=== PATIENT | female | born 1960 | race Caucasian/White ===

== ENCOUNTER → 2017-05-10 15:26 | Outpatient (CLI) | payer BC, MEDICARE, SELFPAY ==
--- NOTE | 2017-05-10 15:30 | RAD_ITS ---
STUDY: X-RAY - LUMBOSACRAL SPINE REASON FOR EXAM: Female, 56 years old. Lower back pain TECHNIQUE: 8 view(s) of the lumbosacral spine were obtained. COMPARISON: 11/20/2013 FINDINGS: There is an exaggerated lumbar lordosis. There is a levoscoliosis of the lumbar spine. There is normal alignment of the vertebrae. Postsurgical fusion noted at L2-3. Artificial intervertebral disc spacer. There is multi-level degenerative disc disease with multi-level disc space narrowing. There is degenerative arthrosis of the sacroiliac joint with articular joint space narrowing and spur formation. Normal visualized soft tissue structures. RAD/L/S Spine Comp/w Bending Views IMPRESSION: Levoscoliosis with postsurgical changes. No acute findings. Remaining levels demonstrate degenerative change. As compared to the exam from 2013, increased levoscoliosis. Electronically Signed: Victorino Tobias DO at 16:00 EST Tel , Service support ,
== END ==
PROVIDERS: Visit Provider Orthopaedic Surgery
DX: M54.5 Low back pain (principal)
CPT/HCPCS: 72082; 72114

== ENCOUNTER → 2017-05-10 16:11 | Outpatient (CLI) | payer BC, MEDICARE, SELFPAY ==
--- NOTE | 2017-05-10 16:18 | RAD_ITS ---
STUDY: XR SPINE ENTIRE THORACIC T LUMBAR (W SKULL, CERVICAL AND SACRAL SPINE IF PERFORMED) REASON FOR EXAM: Female, 56 years old. Chronic low back pain. TECHNIQUE: Radiological exam, spine, entire thoracic and lumbar, including skull, cervical and sacral spine if performed (eg, scoliosis evaluation); 2 or 3 views. COMPARISON: Comparison is made with prior lumbar radiograph dated May 10, 2017. FINDINGS: There is a 28 degree levoscoliosis scoliosis of the lumbar spine with the apex of the convexity at the L3 level. The patient is status post interpedicular screw fixation at the L2-L3 level. The soft tissue structures are unremarkable. RAD/Scoliosis 2 or 3 views IMPRESSION: 28 degree levoscoliosis of the lumbar spine. Prior interpedicular screw fixation at the L2-L3 level. Electronically Signed: Julián Fry MD at 12:40 EST Tel [phone], Service support ,
== END ==
PROVIDERS: Visit Provider Orthopaedic Surgery
DX: M54.5 Low back pain (principal)
CPT/HCPCS: 72082

== ENCOUNTER → 2017-05-16 16:47 | Outpatient (CLI) | payer BC, MEDICARE, SELFPAY ==
--- NOTE | 2017-05-16 16:50 | MRI_ITS ---
STUDY: MRI LUMBAR SPINE WITH AND WITHOUT CONTRAST REASON FOR EXAM: Female, 56 years old. Low back pain TECHNIQUE: Standardized fat and water weighted pulse sequences were obtained in the sagittal and axial planes. 8 ml of Gadavist contrast material was administered for the contrast portion of the examination. COMPARISON: None FINDINGS: T12-L1: Normal endplates. Normal disc height, hydration and morphology. Normal bilateral facet joints. Normal central canal and bilateral lateral recesses. Normal bilateral intervertebral neural foramina. Normal lumbar lordosis. Mild levoconvex scoliosis. Normal conus medullaris that terminates at the L1 level. Bilateral posterior pedicle fusions have been performed at the L2 and L3 levels. The L2-3 disc space has been fused. L1-2: Normal endplates. Normal disc height, hydration and morphology. Normal bilateral facet joints. Normal central canal and bilateral lateral recesses. Normal bilateral intervertebral neural foramina. L2-3: Residual osteophyte with moderate right foraminal stenosis. L3-4: Disc space narrowing and desiccation. Bulging annulus with right foraminal disc protrusion. Bilateral facet hypertrophy. Moderate central canal stenosis and severe right lateral recess stenosis. Severe right foraminal stenosis with mass effect on the exiting right L3 nerve root. L4-5: Disc desiccation. Bulging annulus and bilateral facet and ligamentum flavum hypertrophy with severe central canal stenosis and mass effect on transiting nerve roots. Moderate bilateral foraminal stenoses. L5-S1: Disc space narrowing and desiccation with discogenic endplate changes and anterior osteophytes. Bulging annulus and left lateral osteophyte with bilateral facet hypertrophy. Severe left foraminal stenosis with mass effect on the exiting left L5 nerve root. Normal visualized sacral ala. Normal visualized paraspinous soft tissue structures. No abnormal intrathecal postcontrast enhancement. MRI/Spine Lumbar W/WO Contrast IMPRESSION: Multilevel degenerative disease as described. Severe right foraminal stenosis at L3-4 and mass effect on the right L3 nerve root. Severe left foraminal stenosis at L5-S1 with mass effect on the left L5 nerve root. Severe right lateral recess stenosis at L3-4. Severe central canal stenosis at L4-5 with mass effect on transiting nerve roots. Electronically Signed: Noel Hairston MD at 7:17 EST Tel , Service support ,
== END ==
PROVIDERS: Visit Provider Orthopaedic Surgery
DX: M54.16 Radiculopathy, lumbar region (principal)
CPT/HCPCS: 72158; A9585

== ENCOUNTER → 2018-09-13 | Outpatient (CLI) | payer OTHER, MEDICARE, SELFPAY ==
--- NOTE | 2018-09-13 18:02 | RAD_ITS ---
STUDY: X-RAY - LUMBAR SPINE REASON FOR EXAM: Female, 58 years old. Low back pain TECHNIQUE: 3 view(s) of the lumbar spine were obtained. COMPARISON: Prior study of 05/10/2017 FINDINGS: Normal lumbar lordosis. There is a mild thoracolumbar levoscoliosis. There is a normal alignment of the vertebrae. There are posterior spinal fusion changes from L2 to S1 with rods and interpeduncular screws. A disc spacer is present at the L2-3 level. There is multilevel disc space narrowing. There are status post laminectomy changes of L2-L5. There is no demonstrated fracture. There are calcified plaques of the abdominal aorta. RAD/Lumbar Spine 2 or 3 Views IMPRESSION: Status post posterior spinal fusion changes with rods and interpeduncular screws from L2 to S1. A disc spacer is present at the L2-3 level. There is multilevel disc space narrowing. There are status post laminectomy changes of L2-L5. There is no evidence of acute fracture or spondylolisthesis. Electronically Signed: Octavio Platt MD at 21:20 EDT , Service support ,
== END | disposition home or self-care (01) ==
LOC: RAD 17:57
PROVIDERS: Visit Provider Anesthesiology Pain Medicine
DX: M54.9 Dorsalgia, unspecified (principal)
CPT/HCPCS: 72100

== ENCOUNTER → 2019-11-12 | Outpatient (CLI) | payer MEDICARE, BC, SELFPAY ==
[2017-05-10 15:34] VITALS: BMI 30.9
[2019-11-12 20:44] LABS: Amphetamine Urine VISTA NEGATIVE (<1000 ng/mL); Barbiturate Urine VISTA NEGATIVE (< 200 ng/mL); Benzodiazepine Urine VISTA NEGATIVE (< 200 ng/mL); Cocaine Urine VISTA NEGATIVE (< 300 ng/mL); Ecstacy Urine VISTA POSITIVE (< 500 ng/mL); Methadone Urine VISTA NEGATIVE (< 300 ng/mL); PCP Urine VISTA NEGATIVE (< 25 ng/mL); THC Urine VISTA NEGATIVE (< 50 ng/mL); Vista UDS pH Range 6
== END | disposition home or self-care (01) ==
LOC: LAB 17:16
PROVIDERS: Referring Provider Anesthesiology Pain Medicine; Visit Provider Anesthesiology Pain Medicine
DX: F11.20 Opioid dependence, uncomplicated (principal)
CPT/HCPCS: 80307

== ENCOUNTER 2020-07-11 06:50 | Day surgery (SDC) | payer MEDICARE, BC, SELFPAY ==
[2020-07-11] VITALS (7 sets, daily range): BP systolic 107–159; BP diastolic 52–92; PULSE 69–72; RESP 16–18; TEMP 36.3; O2SAT 92–100; BMI 38.9
[2020-07-11] MEDS: Lactated Ringers 1,000 ML 100 ML IV (07:33)
--- NOTE | 2020-07-11 08:30 | RAD_ITS ---
PROCEDURE: Insert of spinal cord stimulator. DATE OF EXAMINATION: 07/11/2020 INDICATION: Female, 59 years old. Chronic low back pain. FLUOROSCOPY TIME (if supplied): (314 seconds) minutes/seconds. 3 fluoroscopic images were obtained. RAD/Lumbar Spine 2 or 3 Views IMPRESSION: Intraoperative imaging provided for spinal cord stimulator placement. The tip of the electrodes is at the T8-T9 disc space level. Electronically Signed: Julián Fry MD at 11:02 EDT , Service support ,
[2020-07-11] MEDS: Lidocaine 0.5% (50 ml) 50 ML Vial (09:11)
[2020-07-11] MEDS: Bupiv/Epi 0.25% 30 ML Vial (09:11)
== END 2020-07-11 12:15 ==
LOC: SDC 06:50 → AC 06:51
PROVIDERS: PCP Internal Medicine; Referring Provider Anesthesiology Pain Medicine; Visit Provider Anesthesiology Pain Medicine
PROC: (CPT 63685; principal; 2020-07-11 08:15)
DX: M48.00 Spinal stenosis, site unspecified (principal); M54.6 Pain in thoracic spine; M54.5 Low back pain; M79.604 Pain in right leg; G89.29 Other chronic pain; F41.9 Anxiety disorder, unspecified; F31.9 Bipolar disorder, unspecified; I10 Essential (primary) hypertension; E03.9 Hypothyroidism, unspecified; M06.9 Rheumatoid arthritis, unspecified; F20.9 Schizophrenia, unspecified; F17.200 Nicotine dependence, unspecified, uncomplicated; Z79.899 Other long term (current) drug therapy; Z20.822 Contact with and (suspected) exposure to COVID-19
CPT/HCPCS: 01936; 63650 ×2; 63685; 95972; 72100; 76000; 87426; C1776; C9803; J7120; J2405

== ENCOUNTER → 2020-11-27 12:52 | Outpatient (CLI) | payer MEDICARE, SELFPAY ==
[2020-11-27 14:53] LABS: Amphetamine Urine VISTA NEGATIVE (<1000 ng/mL); Barbiturate Urine VISTA NEGATIVE (< 200 ng/mL); Benzodiazepine Urine VISTA NEGATIVE (< 200 ng/mL); Cocaine Urine VISTA NEGATIVE (< 300 ng/mL); Ecstacy Urine VISTA POSITIVE (< 500 ng/mL); Methadone Urine VISTA NEGATIVE (< 300 ng/mL); PCP Urine VISTA NEGATIVE (< 25 ng/mL); THC Urine VISTA NEGATIVE (< 50 ng/mL); Vista UDS pH Range 7
== END ==
PROVIDERS: PCP Internal Medicine; Referring Provider Anesthesiology Pain Medicine; Visit Provider Anesthesiology Pain Medicine
DX: F11.20 Opioid dependence, uncomplicated (principal)
CPT/HCPCS: 80307

== ENCOUNTER → 2021-12-23 | Outpatient (CLI) | payer MEDICARE, SELFPAY ==
[2021-12-23 13:43] LABS: Amphetamine Urine VISTA NEGATIVE (<1000 ng/mL); Barbiturate Urine VISTA NEGATIVE (< 200 ng/mL); Benzodiazepine Urine VISTA NEGATIVE (< 200 ng/mL); Cocaine Urine VISTA NEGATIVE (< 300 ng/mL); Ecstacy Urine VISTA POSITIVE (< 500 ng/mL); Methadone Urine VISTA NEGATIVE (< 300 ng/mL); PCP Urine VISTA NEGATIVE (< 25 ng/mL); THC Urine VISTA NEGATIVE (< 50 ng/mL); Vista UDS pH Range 6
== END | disposition home or self-care (01) ==
LOC: LAB 11:26
PROVIDERS: PCP Family Medicine; Referring Provider Anesthesiology Pain Medicine; Visit Provider Anesthesiology Pain Medicine
DX: F11.20 Opioid dependence, uncomplicated (principal)
CPT/HCPCS: 80307

== ENCOUNTER → 2022-11-17 | Outpatient (CLI) | payer MEDICARE, MEDICAID, SELFPAY ==
[2022-11-17 13:23] LABS: Amphetamine Urine VISTA NEGATIVE (<1000 ng/mL); Barbiturate Urine VISTA NEGATIVE (< 200 ng/mL); Benzodiazepine Urine VISTA NEGATIVE (< 200 ng/mL); Cocaine Urine VISTA NEGATIVE (< 300 ng/mL); Ecstacy Urine VISTA POSITIVE (< 500 ng/mL); Methadone Urine VISTA NEGATIVE (< 300 ng/mL); PCP Urine VISTA NEGATIVE (< 25 ng/mL); THC Urine VISTA NEGATIVE (< 50 ng/mL); Vista UDS pH Range 7
== END | disposition home or self-care (01) ==
PROVIDERS: PCP Family Medicine; Referring Provider Anesthesiology Pain Medicine; Visit Provider Anesthesiology Pain Medicine
DX: F11.20 Opioid dependence, uncomplicated (principal)
CPT/HCPCS: 80307

== ENCOUNTER → 2024-01-10 | Outpatient (CLI) | payer MEDICARE, MEDICAID, SELFPAY ==
--- NOTE | 2024-01-10 16:00 | RAD_ITS ---
INDICATION: Postlaminectomy syndrome, not elsewhere classified EXAMINATION/TECHNIQUE: X-RAY - XR Spine Lumbar 2 or 3 Views COMPARISON: Prior study dated: 10/10/2018. FINDINGS: VERTEBRAE: Preserved vertebral body height. Fusion of L3-S1 is again seen with bilateral pedicle screws. Extension of the fusion of the lower thoracic and upper lumbar spine. No spondylolisthesis. Preservation of the normal lumbar lordosis. Mild levoscoliosis. DISCS: Disc implant at the level of L2-L3 Previous exam. INCLUDED ABDOMEN: Included bowel gas pattern is non-obstructive. RAD/Lumbar Spine 2 or 3 Views IMPRESSION: Fusion of the lower thoracic and lumbar spine with laminectomy. Electronically Signed: Tutu Strange MD at 14:41 EDT ,
== END | disposition home or self-care (01) ==
LOC: RAD 15:53
PROVIDERS: PCP Family Medicine; Referring Provider Anesthesiology Pain Medicine; Visit Provider Anesthesiology Pain Medicine
DX: M96.1 Postlaminectomy syndrome, not elsewhere classified (principal)
CPT/HCPCS: 72100

== ENCOUNTER → 2024-02-14 | Outpatient (CLI) | payer MEDICARE, SELFPAY ==
--- NOTE | 2024-02-14 16:30 | RAD_ITS ---
INDICATION: Radiculopathy, cervical region EXAMINATION/TECHNIQUE: X-RAY - XR Spine Cervical 2 or 3 Views COMPARISON: No relevant prior comparison study available FINDINGS: VERTEBRAE: Cervical fusion hardware anteriorly from C3 to C6. Preserved vertebral body height. Chronic appearing fragmentation of the anterior aspect of the C2 vertebral body with corticated margins. No spondylolisthesis. Preservation of the normal cervical lordosis. No significant facet arthropathy. DISCS: Disc spaces are otherwise maintained. NECK SOFT TISSUES: No prevertebral soft tissue widening. LUNG APICES: Clear. RAD/Cerv Spine 2 or 3 Views IMPRESSION: Intact fusion hardware C3-C6. Alignment maintained. Remaining levels are maintained.. Electronically Signed: Isreal Rajput MD at 20:03 EST ,
== END | disposition home or self-care (01) ==
LOC: RAD 16:27
PROVIDERS: PCP Family Medicine; Referring Provider Anesthesiology Pain Medicine; Visit Provider Anesthesiology Pain Medicine
DX: M54.12 Radiculopathy, cervical region (principal)
CPT/HCPCS: 72040

== ENCOUNTER → 2024-05-09 | Outpatient (CLI) | payer MEDICARE, SELFPAY ==
--- NOTE | 2024-05-09 07:43 | MRI_ITS ---
PROCEDURE: SPINE CERVICAL (ROUTINE) REASON FOR EXAM: Radiculopathy. TECHNIQUE: Cervical spine MRI without intravenous gadolinium-based contrast. CONTRAST: None. COMPARISON: None. FINDINGS: Vertebral body heights are maintained. Chronic fragmentation of the anteroinferior portion of the C2 vertebral body. No abnormal marrow signal. C3 through C6 anterior cervical fusion and discectomy. C2-3: Unremarkable C3-4: Fused. Facet arthropathy resulting in mild right neural foraminal stenosis. C4-5: Fused. C5-6: Fused. C6-7: Facet and uncovertebral hypertrophy resulting in mild right neural foraminal stenosis. C7-T1: Unremarkable MRI/Spine Cervical (Routine) IMPRESSION: Mild degenerative changes. C3 through C6 anterior cervical discectomy and fusion. Reading Location: [place] [id number]
== END | disposition home or self-care (01) ==
PROVIDERS: PCP Family Medicine; Referring Provider Anesthesiology Pain Medicine; Visit Provider Anesthesiology Pain Medicine
DX: M54.12 Radiculopathy, cervical region (principal)
CPT/HCPCS: 72141